=== PATIENT | female | born 1990 ===

== ENCOUNTER 2024-10-03 18:14 | Outpatient (REF) | payer MEDICAID, SELFPAY ==
--- NOTE | 2024-10-03 13:30 | PAPFT_PTH ---
PATIENT: Mari Barker [facility] U#:[id number] AGE/SX: 34/F ROOM: RE10/03/[address]: Leida Kelsey : 1990 BED: DIS: 10/03/2024 SPEC #: [id number] RECD: 10/06/24 13:17 STATUS: TEO REQ #: [id number] YANNA: 10/03/24 13:[address]: Leida Kelsey DEPT: [facility] Cytology RECD BY: Renee Owen ENTERED: 10/06/24 13:18 SP TYPE: PAPFT MICKEY DR: Unknown,Unknown Tissues: 1 - CX/ENDOCX FOR PAP SMEARS Procedures: PAP THIN PREP/[facility] Screening HPV DNA PROBE Comments: [id number] (HPV 16 & 18/45)
[2024-10-03 21:41] LABS: Anion Gap 0.1 mmol/L (3-11); BUN 12 mg/dL (7-18); CO2 27.9 mmol/L (21.0-32.0); Calcium 9.2 mg/dL (8.5-10.1); Chloride 101 mmol/L (98-107); Estimated GFR 114.88 (mL/min/1.73m2); Glucose 83 mg/dL (74-106); Potassium 4.3 mmol/L (3.5-5.1); Sodium 129 mmol/L (136-145)
== END 2024-10-03 18:15 | disposition home or self-care (01) ==
LOC: NCHCN 18:14
PROVIDERS: Visit Provider Nurse Practitioner Family
DX: L68.0 Hirsutism (principal); Z00.00 Encounter for general adult medical examination without abnormal findings; Z12.4 Encounter for screening for malignant neoplasm of cervix; Z01.419 Encounter for gynecological examination (general) (routine) without abnormal findings
CPT/HCPCS: 80048; 88142; 87624

== ENCOUNTER 2024-10-13 16:48 | Outpatient (REF) | payer MEDICAID, SELFPAY ==
[2024-10-13 16:07] LABS: Sodium 141 mmol/L (136-145)
== END 2024-10-13 16:49 | disposition home or self-care (01) ==
LOC: NCHCN 16:48
PROVIDERS: Visit Provider Nurse Practitioner Family
DX: E87.1 Hypo-osmolality and hyponatremia (principal)
CPT/HCPCS: 84295